=== PATIENT | female | born 1955 | race Caucasian/White ===

== ENCOUNTER 2020-05-22 11:17 | Emergency (ER) | payer OTHER, SELFPAY ==
[2020-05-22] VITALS (9 sets, daily range): BP systolic 100–138; BP diastolic 54–80; PULSE 60–73; RESP 11–24; TEMP 36.7; O2SAT 93–100
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
--- NOTE | 2020-05-22 11:30 | DI.CT.S_ITS ---
PROCEDURE: CT CHEST ABD PEL W CON INDICATIONS: Trauma TECHNIQUE: After the administration of intravenous contrast, 5 mm thick sections acquired from the lung apices to the symphysis. 5 mm coronal and sagittal reformats were performed, with additional 7 mm MIP reformats through the lungs. For radiation dose reduction, the following was used: automated exposure control, adjustment of mA and/or kV according to patient size. COMPARISON: None. FINDINGS: Image quality: Excellent. CHEST: Lungs and pleura: There is a 3 mm subpleural nodule in the left lower lobe (series 3 image 231). A similar nodule seen in the left major fissure (series 3 image 2094). No acute airspace opacities. No pleural effusions or pneumothorax. Central and peripheral airways appear patent and normal in caliber. Mediastinum: Heart size is normal. No pericardial effusion. No mediastinal or hilar adenopathy by size criteria. Thoracic aorta and central pulmonary arteries are normal in size. Esophagus is normal in caliber. No hiatal hernia. Chest wall: No axillary or supraclavicular adenopathy by size criteria. Thyroid gland is normal. ABDOMEN: Solid organs: Liver is normal in size and enhancement. Gallbladder is normal. Biliary system is non dilated. Pancreas enhances normally. Spleen is normal in size and enhancement. No adrenal nodules. Kidneys demonstrate normal size and enhancement, without hydronephrosis. Peritoneum and bowel: Bowel loops demonstrate normal wall thickness and caliber. No free fluid or air. Nodes and vessels: No retroperitoneal or mesenteric adenopathy by size criteria. Aorta and inferior vena cava are normal in size. Miscellaneous: No ventral hernias. PELVIS: Genitourinary: Bladder wall thickness is normal. Miscellaneous: No inguinal hernias or adenopathy. Bones: There is an acute traumatic fracture of L1 vertebral body with 30% loss of vertebral body height with multiple minimal posterior displacement. Comminuted right humeral head fracture is noted. IMPRESSION: 1. Acute traumatic fracture of L1 vertebral body. 2. Comminuted right humeral head fracture. 3. No acute visceral injuries in the thorax, abdomen or pelvis. 4. A couple 3 mm nodule at left lung base. Please see enclosed followup recommendation. Fleischner Society criteria for SOLID lung nodule followup. Nodule size (mm)Low-risk patientHigh-risk patient?4No follow-up neededFollow-up at 12 mo; if no change, no further follow-up>[id number] CT at 12 mo; if no change, no further follow-up needed.Initial follow-up CT at 6-12 mo, then 18-24 mo if no change. >6-8Initial follow-up CT at 6-12 mo, then 18-24 mo if no change. Initial follow-up CT at 3-6 mo, then 9-12 mo and 24 mo if no change. >8Follow-up CT at 3, 9, 24 mo. Or PET and/or biopsy.Same as for low-risk pts. Dictated by: Vandana Catsellano M.D. on 05/22/2020 at 11:58 Approved by: Vandana Castellano M.D. on 05/22/2020 at 12:38
--- NOTE | 2020-05-22 11:30 | DI.CT.S_ITS ---
PROCEDURE: CT HEAD/BRAIN WO CON INDICATIONS: Trauma TECHNIQUE: Noncontrast 4.5 mm thick angled axial sections acquired from the foramen magnum to the vertex, with coronal and sagittal reformats. For radiation dose reduction, the following was used: automated exposure control, adjustment of mA and/or kV according to patient size. COMPARISON: None. FINDINGS: Image quality: Excellent. CSF spaces: Basal cisterns are patent. No extra-axial fluid collections. Ventricles are normal in size and shape. Brain: No midline shift. No intracranial masses or hemorrhage. Ford-white matter interface is normal. Skull and face: Calvarium and visualized facial bones are intact, without suspicious lesions. Sinuses: Visualized sinuses and mastoids are clear. IMPRESSION: 1. No acute intracranial abnormalities. Dictated by: Vandana Castellano M.D. on 05/22/2020 at 11:49 Approved by: Vandana Castellano M.D. on 05/22/2020 at 11:51
--- NOTE | 2020-05-22 11:30 | DI.CT.S_ITS ---
PROCEDURE: CT CERVICAL SPINE WO CON INDICATIONS: Trauma TECHNIQUE: Noncontrast 3 mm thick sections acquired from the skull base to the T4 level. Sagittal and coronal reformats were then constructed. For radiation dose reduction, the following was used: automated exposure control, adjustment of mA and/or kV according to patient size. COMPARISON: [facility], CT, CT CHEST ABD PEL W CON, 05/22/2020, 11:26. FINDINGS: Image quality: Excellent. Bones: No fractures or dislocations. There is straightening of cervical curvature. Minimal anterolisthesis of C3 on C4 and C4-C5. Sclerotic appearance of C5 vertebral body. There is degenerative disc disease, moderate to severe at C5-C6 and C6-C7, mild to moderate facet C3-C4 and C4-C5. Bilateral facet arthropathy, most pronounced at C3-C4 and C4-C5 on the left and C2-C3 on the right. Visualized superior ribs are intact. Soft tissues: Prevertebral soft tissues are normal in thickness. No paravertebral hematomas. No apical pneumothoraces. IMPRESSION: 1. No fractures. 2. Sclerotic appearance of C5 vertebral body. Cannot rule out a neoplastic process such as lymphoma or metastasis. Non-urgent MRI with and without contrast is suggested for further evaluation. 3. Degenerative disc and facet disease in cervical spine. Dictated by: Vandana Castellano M.D. on 05/22/2020 at 11:52 Approved by: Vandana Castellano M.D. on 05/22/2020 at 11:57
[2020-05-22] MEDS: SODIUM CHLORIDE 0.9% 1,000 ML 150 ML IV (11:43)
[2020-05-22] MEDS: ONDANSETRON 4 MG/2 ML INJ IV (11:46)
[2020-05-22 11:48] LABS: Alanine Aminotransferase 23 IU/L (<35); Albumin 4.2 g/dL (3.5-5.0); Albumin Globulin Ratio 1.8 (1.0-2.8); Alkaline Phosphatase 62 U/L (38-126); Aspartate Aminotransferase 44 IU/L (14-36); Bilirubin Total 0.5 mg/dL (0.2-1.3); Blood Urea Nitrogen 19 mg/dL (7-17); Calcium 9.5 mg/dL (8.4-10.2); Carbon Dioxide 26 mmol/L (22-32); Chloride 107 mmol/L (98-107); Estimated Glomerular Filt Rate > 60.0 mL/min (>60); Globulin 2.4 g/dL (1.7-4.1); Glucose 113 mg/dL (80-110); HEMOLYSIS < 15 (0-50); Lipase 84 U/L (23-300); Potassium 4.2 mmol/L (3.4-5.1); Sodium 137 mmol/L (137-145); Total Protein 6.6 g/dL (6.3-8.2)
[2020-05-22] MEDS: HYDROMORPHONE 1 MG INJ 0.5 MG IV (11:48)
--- NOTE | 2020-05-22 12:35 | DI.RAD.S_ITS ---
PROCEDURE: XR SHOULDER RT MIN 2V INDICATIONS: trauma TECHNIQUE: 2 views of the shoulder were acquired. COMPARISON: None. FINDINGS: Bones: There is a minimally displaced fracture involving the greater tuberosity of the humeral head without intra-articular involvement. There is no dislocation or suspicious osseous lesion. There appear to be post surgical changes of the distal clavicle. Moderate degenerative changes of the glenohumeral joint are present. Soft tissues: No suspicious soft tissue calcifications. IMPRESSION: Mildly displaced greater tuberosity fracture the humeral head. Dictated by: Khang Kincaid M.D. on 05/22/2020 at 12:50 Approved by: Khang Kincaid M.D. on 05/22/2020 at 12:53
--- NOTE | 2020-05-22 12:35 | DI.RAD.S_ITS ---
PROCEDURE: XR ELBOW RT 2V INDICATIONS: trauma TECHNIQUE: 2 views of the elbow were acquired. COMPARISON: None. FINDINGS: Bones: No displaced fractures of the elbow are appreciated. There is no dislocation or suspicious osseous lesion. Soft tissues: No elbow joint effusion. No suspicious soft tissue calcifications. IMPRESSION: No displaced rib fractures are appreciated. If the patient's symptoms persist or there is high clinical concern for acute injury, despite conservative management, please consider advanced medical imaging (CT, MRI, or bone scan). Dictated by: Khang Kincaid M.D. on 05/22/2020 at 12:57 Approved by: Khang Kincaid M.D. on 05/22/2020 at 12:58
--- NOTE | 2020-05-22 12:35 | DI.RAD.S_ITS ---
PROCEDURE: XR WRIST RT MIN 3V INDICATIONS: trauma TECHNIQUE: 4 views of the wrist were acquired. COMPARISON: None. FINDINGS: Bones: No displaced fracture or dislocation is evident. Bone mineralization is mildly decreased. No suspicious osseous lesions are present. There are mild to moderate degenerative changes noted involving the joints of the thumbs are more prominent involving the basal joint of the thumb. There is questionable widening of the scapholunate joint. There is a small osteophyte evident at the radial tip of the distal radius. A ring overlying the proximal 4th digit results in suboptimal evaluation of the underlying proximal phalanx and adjacent bony structures on the oblique images. Soft tissues: No suspicious soft tissue calcifications. An intravenous catheter is identified overlying the dorsal aspect of the hand at the level of the 4th metacarpal. IMPRESSION: 1. No acute fracture of the right wrist. 2. Moderate degenerative changes of the hand are evident. 3. Possible scapholunate joint widening may indicate a ligamentous injury. Dictated by: Khang Kincaid M.D. on 05/22/2020 at 12:55 Approved by: Khang Kincaid M.D. on 05/22/2020 at 12:57
[2020-05-22 13:10] LABS: Add Manual Diff / Slide Review NO; Basophils Absolute Auto 0 /uL (0-100); Basophils Percent Auto 0.3 % (0-2); Eosinophils Absolute Auto 0 /uL (0-450); Eosinophils Percent Auto 0.1 % (2-4); Hematocrit 39.5 % (36-46); Hemoglobin 13.3 g/dL (12.0-16.0); Lymphocytes Absolute Auto 1200 /uL (1100-4500); Lymphocytes Percent Auto 12.4 % (25-40); Mean Corpuscular HGB Conc 33.8 % (30-36); Mean Corpuscular Hemoglobin 31.9 PG (26-34); Mean Corpuscular Volume 94.5 fL (80-100); Monocytes Absolute Auto 500 /uL (0-900); Monocytes Percent Auto 4.9 % (3-14); Neutrophils Absolute Auto 8100 /uL (1500-7000); Neutrophils Percent Auto 82.3 % (50-75); Platelet Count 148 X10^3/uL (150-400); Red Blood Cell Count 4.18 X10^6/uL (4.0-5.2); Red Cell Distribution Width 12.5 % (11.6-14.8); White Blood Cell Count 9.9 X10^3/uL (4.5-11.0)
[2020-05-22] MEDS: OXYCODONE/ACETAMINOPHEN 5/325 TABLET 2 TAB PO (14:22)
[2020-05-22] MEDS: BACITRACIN OINT 0.9 GM PCKT 1 APPLIC TOP (14:22)
[2020-05-22] MEDS: IBUPROFEN 400 MG TABLET PO (14:23)
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
== END 2020-05-22 16:40 | disposition home or self-care (01) ==
PROVIDERS: Emergency Provider Emergency Medicine
DX: S32.010A Wedge compression fracture of first lumbar vertebra, initial encounter for closed fracture (principal); S42.291A Other displaced fracture of upper end of right humerus, initial encounter for closed fracture; S06.0X1A Concussion with loss of consciousness of 30 minutes or less, initial encounter; R91.1 Solitary pulmonary nodule; V09.9XXA Pedestrian injured in unspecified transport accident, initial encounter
CPT/HCPCS: 36415; 70450; 71260; 72125; 73030; 73070; 73110; 74177; 80053; 81003; 83690; 85025; 86850; 86900; 86901; 96374; 96375; 97161; 97535; 99285; J1170; J2405

== ENCOUNTER 2020-08-04 10:30 | Outpatient (RCR) | payer OTHER, SELFPAY ==
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
--- NOTE | 2020-06-29 13:14 | PT.OPPOC ---
Physical, Occupational & Speech Therapy At [facility] Current Diagnoses Low back pain (06/29/20) Displaced fracture of greater tuberosity of right humerus, subsequent encounter for fracture with routine healing (06/29/20) Visit Care Team Role Provider Type Josee Green MD Primary Care Provider Non-Staff Specialty: Family Practice Address: [address] [place] [address], [facility] Email: Other Providers Specialty: Address: Phone: Fax: Email: Other Providers Specialty: Address: Phone: Fax: Email: Doctor Brit MD Attending Provider Non-Staff Referring Provider Specialty: Medical Address: Phone: Fax: Email: Plan Of Care PT-OP-T Assessment and Plan Start: 06/08/20 15:28 Freq: Status: Active Protocol: Document 06/29/20 12:13 MB (Rec: 06/29/20 13:12 MB [id number]) Physical Therapy Assessment Goals 5 Impairment Oswestry score 38 Half-Way Goal (LTG) Pt will present with an improved Oswestry LBP scale score to reflect no more than 10% impairment by 08/29/2020. 06/29/2020: Oswestry reveals 38% impairment 4 Liquefaction Plant Operator Goal (LTG) Pt will report a 75% improvement in overall pain to improve quality of lift by . 06/29/2020: Pt reports ongoing pain at night. She reports 4- 5/10 all over pain at night. She has more pain in her back when she is active during the day. She is talking less medicine. LTG Duration 8 weeks 3 Half-Way Goal (LTG) Pt will perform progressive HEP with I including ROM, postural, alignment, balance and progressive strengthening to improve function by 2019. 06/29/2020: Pt has been doing some of her exercises. LTG Duration 8 weeks Two Half-Way Goal (LTG) Pt will present with normal PROM right shoulder flexion, abduction, ER and IR in 90 deg to allow improve right shoulder function by 08/29/2020 . 06/29/2020: Defer measuring shoulder until next reassessment. 6 weeks out is next week. LTG Duration 8 weeks 1 Impairment QuickDASH score reflects 50% impairment Liquefaction Plant Operator Goal (LTG) Pt will present with a QuickDASH score to reflect no more than 15% impairment to demonstrate greater function of right arm by 08/29/2020. 06/29/2020: Will defer until next reassessment and pt is still under heavy precautions. LTG Duration 8 weeks Assessment Summary Assessment Back assessment today: posture was assessed briefly on initial eval and is changed d/ t wearing right UE sling. Extension and flexion in standing deferred d/t known L1 compression fracture. Pt has not sensory changes or radicular pain. It is localized to the LB around L1 area and is more central. Hook lying: B hip flexion, knee flexion and extension, ankle DF and great toe extension 5/5 . Right hip abduction 4/5. Pt presents with wound dressing over right schaefer. Con't PT and progress shoulder exercises as restrictions lift, add progressive alignment, strengthening for core for spine. Physical Therapy Plan Frequency and Duration Frequency of Treatment 2x/Week Duration of Treatment 8 weeks Plan of Care Start Date 06/29/20 Plan of Care End Date 08/31/20 Therapeutic Interventions Therapeutic Interventions Aquatic Therapy,Balance Training,Canalithic Repositioning,Home Exercise Program,Manual Therapy, Neuromuscular Re-education, Patient/Caregiver Education, Self-Care/Home Management,Soft Tissue Mobilization,Taping, Therapeutic Activities, Therapeutic Exercises Modalities Cold Pack/Ice Massage,Electric Stimulation,Hot Packs, Ultrasound Next Visit Focus/Plan Next Note Type Treatment Note Next Visit Plan Progress exercises reviewing including pelvic realignment and gentle core progression in hook lying, diaphragm breathing with Buteyko breathing Plan of Care Dates Plan of Care Start Date 06/29/20 Plan of Care End Date 08/31/20 Electronically Signed by: Zabrina Garces PT 06/29/20 2350 Please Sign and Return: I have reviewed this Plan of Care and certify that the skilled therapy services above are required to meet the patient?s needs. Physician Signature Date Printed Name and Credentials Clinical Instructor Signature Printed Name and Credentials
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
--- NOTE | 2020-07-28 11:37 | PT.OPPOC ---
Physical, Occupational & Speech Therapy At [facility] Current Diagnoses Low back pain (07/28/20) Displaced fracture of greater tuberosity of right humerus, subsequent encounter for fracture with routine healing (07/28/20) Visit Care Team Role Provider Type Josee Green MD Primary Care Provider Non-Staff Specialty: Family Practice Address: [address] [place] [address], [facility] Email: Other Providers Specialty: Address: Phone: Fax: Email: Other Providers Specialty: Address: Phone: Fax: Email: Doctor Brit MD Attending Provider Non-Staff Referring Provider Specialty: Medical Address: Phone: Fax: Email: Plan Of Care PT-OP-T Assessment and Plan Start: 06/08/20 15:28 Freq: Status: Active Protocol: Document 07/28/20 10:31 MB (Rec: 07/28/20 11:36 MB [id number]) Physical Therapy Assessment Goals 5 Impairment Oswestry score 38 Fci Goal (LTG) Pt will present with an improved Oswestry LBP scale score to reflect no more than 10% impairment by 09/25/2020. 07/28/2020: Oswestry reveals 54% impairment LTG Duration 5 weeks 4 Fci Goal (LTG) Pt will report a 75% improvement in overall pain to improve quality of lift by . 07/28/2020: Pt reports ongoing LBP 6-7/10 and right shoulder pain is better and her range is better LTG Duration 5 weeks 3 Manager Protein Goal (LTG) Pt will perform progressive HEP with I including ROM, postural, alignment, balance and progressive strengthening to improve function by 2019. 07/28/2020: Pt has been doing some of her exercises. LTG Duration 5 weeks Two Fci Goal (LTG) Pt will present with improved right UE AROM abduction and flexion to at least 140 deg to improve right arm function by 09/25/2020. 07/28/2020: AROM right shoulder abduction and flexion to 95 deg, active IR behind back normal LTG Duration 5 weeks 1 Impairment QuickDASH score reflects 50% impairment Fci Goal (LTG) Pt will present with a QuickDASH score to reflect no more than 15% impairment to demonstrate greater function of right arm by 09/25/2020. 07/28/2020: QuickDASH reflects 56.81% impairment LTG Duration 5 weeks Assessment Summary Assessment Pt has made small gains towards LEAH and more gains on QuickDASH since starting PT. Her biggest complaint is her back. She con't to walk long distances and ride in her 's boat despite PT education to limit gait distance and not to ride in his boat. She reports getting burnt out with PT frequency and would like to decrease to 1x/wk starting next week. Pt's right shoulder AROM is much improved and is 95 deg abduction and flexion today. Powers Balance Testing was required for insurance paperwork and this balance test is too easy for such an active person. Did add Tandem standing to HEP to help with balance. Initiated first shoulder strengthening exercise today. Will con't to progress PT as pt tolerates. Physical Therapy Plan Frequency and Duration Frequency of Treatment 2x/Week Duration of Treatment 5 weeks Plan of Care Start Date 07/28/20 Plan of Care End Date 09/25/20 Therapeutic Interventions Therapeutic Interventions Aquatic Therapy,Balance Training,Canalithic Repositioning,Home Exercise Program,Manual Therapy, Neuromuscular Re-education, Patient/Caregiver Education, Self-Care/Home Management,Soft Tissue Mobilization,Taping, Therapeutic Activities, Therapeutic Exercises Modalities Cold Pack/Ice Massage,Electric Stimulation,Hot Packs, Ultrasound Next Visit Focus/Plan Next Note Type Treatment Note Next Visit Plan Progress exercises, consider PNF as tolerates, further UE exercises over foam roller Plan of Care Dates Plan of Care Start Date 07/28/20 Plan of Care End Date 09/25/20 Electronically Signed by: Zabrina Garces, PT 07/28/20 [id number] Please Sign and Return: I have reviewed this Plan of Care and certify that the skilled therapy services above are required to meet the patient?s needs. Physician Signature Date Printed Name and Credentials Clinical Instructor Signature Printed Name and Credentials
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
== END 2020-08-28 09:06 ==
LOC: PHYS 10:30
PROVIDERS: PCP Family Medicine; Referring Provider Physician Assistant Surgical; Visit Provider Physician Assistant Surgical
DX: S42.251D Displaced fracture of greater tuberosity of right humerus, subsequent encounter for fracture with routine healing (principal); M54.5 Low back pain
CPT/HCPCS: 97110; 97112; 97140; 97162; 97535

== ENCOUNTER → 2022-03-10 11:31 | Outpatient (CLI) | payer OTHER, SELFPAY ==
--- NOTE | 2022-03-10 | DI.CT.S_ITS ---
PROCEDURE: CT CHEST WO CON INDICATIONS: LUNG NODULE TECHNIQUE: Noncontrast 5 mm thick sections acquired from the pulmonary apices to the posterior costophrenic angles. 1 mm lung window, 5 mm thick coronal and sagittal and 7 mm axial MIP reformats were then acquired. For radiation dose reduction, the following was used: automated exposure control, adjustment of mA and/or kV according to patient size. COMPARISON: [facility], CT, CT CHEST ABD PEL W CON, 05/22/2020, 11:26. FINDINGS: Image quality: Excellent. Lungs and pleura: No acute air space opacities. 3 mm nodule in the left lung base series 6, image 111 and 3 mm nodule in the left lung base series 6, image 112 are both unchanged compared to 05/22/2020 and are therefore presumed benign. No pleural effusions or pneumothorax. Central and peripheral airways are patent and normal in caliber. Mediastinum: Heart size is normal. No pericardial effusion. No mediastinal adenopathy by size criteria. Thoracic aorta and central pulmonary arteries are normal in size. Esophagus is normal in caliber. No hiatal hernia. Bones and chest wall: No suspicious bony lesions. No vertebral body compression fractures. No axillary or supraclavicular adenopathy by size criteria. Thyroid gland is normal. L1 compression fracture is unchanged. Abdomen: Visualized upper abdominal solid organs and bowel loops appear normal in the absence of contrast. IMPRESSION: 1. 3 mm nodules in the left lung base are stable for 2 years and are presumed benign. 2. No acute or significant abnormality of the chest. Dictated by: Andrea Jensen M.D. on 03/10/2022 at 13:19 Approved by: Andrea Jensen M.D. on 03/10/2022 at 13:31
== END ==
PROVIDERS: PCP Student in an Organized Health Care Education/Training Program; Referring Provider Student in an Organized Health Care Education/Training Program; Visit Provider Student in an Organized Health Care Education/Training Program
DX: R91.8 Other nonspecific abnormal finding of lung field (principal)
CPT/HCPCS: 71250

== ENCOUNTER → 2023-04-08 10:56 | Outpatient (CLI) | payer OTHER, SELFPAY | PROVIDERS: PCP Student in an Organized Health Care Education/Training Program; Visit Provider Registered Nurse | DX: N39.0 Urinary tract infection, site not specified (principal) | CPT/HCPCS: 87086 ==

== ENCOUNTER → 2023-06-14 15:25 | Outpatient (CLI) | payer OTHER, SELFPAY | PROVIDERS: PCP Family Medicine; Visit Provider Family Medicine | DX: R35.0 Frequency of micturition (principal); R82.998 Other abnormal findings in urine | CPT/HCPCS: 87086 ==

== ENCOUNTER → 2023-09-06 09:22 | Outpatient (CLI) | payer OTHER, SELFPAY | PROVIDERS: PCP Family Medicine; Visit Provider Family Medicine | DX: R31.9 Hematuria, unspecified (principal); R30.0 Dysuria; L29.9 Pruritus, unspecified | CPT/HCPCS: 87077; 87086; 87186; 87210 ==

== ENCOUNTER → 2023-09-27 10:21 | Outpatient (CLI) | payer OTHER, SELFPAY | PROVIDERS: PCP Family Medicine; Referring Provider Physician Assistant; Visit Provider Physician Assistant | DX: R19.7 Diarrhea, unspecified (principal) | CPT/HCPCS: 87045; 87177; 87899 ==

== ENCOUNTER → 2024-06-13 11:11 | Outpatient (CLI) | payer OTHER, SELFPAY ==
--- NOTE | 2024-06-13 11:13 | DI.RAD.S_ITS ---
PROCEDURE: XR LUMBAR SPINE 2-3V INDICATIONS: low back pain. previous L1 fx TECHNIQUE: 3 views of the lumbar spine were acquired. COMPARISON: [facility], CT, CT CHEST WO [facility], 03/10/2022, 11:39. FINDINGS: Bones: 5 [id number] vertebrae are present. There is straightening of normal lumbar lordosis. Mild rightward curvature of thoracolumbar spine with apex at L1 level is also seen. Chronic appearing anterior wedge compression deformity involving superior endplate of L1 is again seen unchanged from 2021 study. Degenerative endplate changes are noted throughout lumbar spine. 5 mm anterolisthesis of L4 on L5 is seen. No new compression fracture is noted. No suspicious bony lesions. Soft tissues: Overlying bowel gas pattern is normal. No suspicious soft tissue calcifications. IMPRESSION: Chronic appearing anterior wedge compression deformity at L1 level not significantly changed from prior study. Mild dextroscoliosis of thoracolumbar spine centered at L1 level. 5 mm anterolisthesis of L4 on L5. No acute compression fracture. Degenerative disc disease throughout lumbar spine. Dictated by: Javi Shaw M.D. on 06/13/2024 at 13:59 Approved by: Javi Shaw M.D. on 06/13/2024 at 14:08
== END ==
PROVIDERS: PCP Family Medicine; Referring Provider Family Medicine; Visit Provider Family Medicine
DX: M51.36 Other intervertebral disc degeneration, lumbar region (principal); M43.16 Spondylolisthesis, lumbar region; M41.9 Scoliosis, unspecified; M43.8X6 Other specified deforming dorsopathies, lumbar region; M54.50 Low back pain, unspecified
CPT/HCPCS: 72100

== ENCOUNTER → 2025-04-01 08:05 | Outpatient (CLI) | payer MEDICARE, SELFPAY ==
[2025-04-01 08:49] LABS: BUN Creatinine Ratio 27.3 (6-22); Blood Urea Nitrogen 21 mg/dL (7-17); Calcium 9.6 mg/dL (8.4-10.2); Carbon Dioxide 29 mmol/L (22-32); Chloride 103 mmol/L (98-107); Cholesterol 225 mg/dL (140-199); Estimated Glomerular Filt Rate > 60 mL/min (>60); Glucose 95 mg/dL (70-99); HDL Cholesterol 99 mg/dL (40-60); HEMOLYSIS < 15 (0-50); LDL Cholesterol Calculated 110 mg/dL (<100); Potassium 4.3 mmol/L (3.4-5.1); Sodium 138 mmol/L (137-145); Triglycerides 79 mg/dL (35-150)
[2025-04-01 15:24] LABS: Hep C Virus Ab w/Reflex Quant NEGATIVE s/c (NEGATIVE)
== END ==
PROVIDERS: PCP Family Medicine; Referring Provider Family Medicine; Visit Provider Family Medicine
DX: Z00.00 Encounter for general adult medical examination without abnormal findings (principal); R73.01 Impaired fasting glucose; E78.5 Hyperlipidemia, unspecified
CPT/HCPCS: 36415; 80048; 80061; 86803

== ENCOUNTER → 2025-05-05 15:06 | Outpatient (CLI) | payer MEDICARE, SELFPAY ==
--- NOTE | 2025-05-05 15:09 | DI.MG.S_ITS ---
MM screening mammo BI: 05/05/2025. BI-RADS: 2 CLINICAL: 70-year old female for bilateral screening mammogram. No Tyrer-Cuzick risk score calculation due to the patient's personal history of breast cancer. Patient reports a history of bilateral breast carcinoma diagnosed at age 48. Status-post bilateral lumpectomies with radiation therapy and hormonal therapy. Current reported family history of breast cancer: sister. The patient reports testing negative for BRCA gene mutation. PRIOR EXAMS 04/12/2024, 04/11/2023, 03/28/2022. MAMMOGRAPHY TECHNIQUE: 2D and 3D (tomosynthesis) digital mammographic views obtained, with additional images as needed for full coverage. Current study was also evaluated with a Computer Aided Detection (CAD) system. DENSITY C. The breasts are heterogeneously dense, which may obscure small masses. MAMMOGRAPHY FINDINGS Right: Biopsy marker present on the right. Benign-appearing post-surgical changes noted on the right. There are no suspicious masses, calcifications, or other findings in the breast. Left: Benign-appearing post-surgical changes noted on the left. There are no suspicious masses, calcifications, or other findings in the breast. IMPRESSION: * No evidence of malignancy with benign findings. RECOMMENDATIONS Bilateral * Annual screening mammography. OVERALL ASSESSMENT CATEGORY BI-RADS-2: Benign. The [employer] recommends annual screening mammography beginning at age 40 for women with average risk of breast cancer. ELECTRONICALLY SIGNED: Michael Ruiz M.D. on 05/06/2025 at 09:28:57 AM PT Interpreting Station ID: [id number]
== END ==
PROVIDERS: PCP Family Medicine; Referring Provider Family Medicine; Visit Provider Family Medicine
DX: Z12.31 Encounter for screening mammogram for malignant neoplasm of breast (principal); Z85.3 Personal history of malignant neoplasm of breast; Z80.3 Family history of malignant neoplasm of breast; R92.333 Mammographic heterogeneous density, bilateral breasts
CPT/HCPCS: 77063; 77067

== ENCOUNTER → 2025-09-01 07:51 | Outpatient (CLI) | payer MEDICARE, SELFPAY ==
[2025-09-01 09:13] LABS: Influenza A - CEPHEID Flu A NEGATIVE (NEGATIVE); Influenza B - CEPHEID Flu B NEGATIVE (NEGATIVE)
[2025-09-01 09:14] LABS: COVID-19 CEPHEID 4-PLEX PCR Negative (Negative)
== END ==
PROVIDERS: PCP Family Medicine; Visit Provider Chiropractor
DX: R05.1 Acute cough (principal)
CPT/HCPCS: 87637